=== PATIENT | female | born 1985 | race Caucasian/White ===

== ENCOUNTER 2018-04-02 23:11 | Inpatient (IN) ==
[2018-04-02] MEDS ORDERED: Naloxone Inj 0.4 MG/ML Vial IV.PUSH PRN (23:40)
[2018-04-02] MEDS ORDERED: Sodium Chlor 0.9% Inj 500 ML IV.SIG PRN (23:40)
[2018-04-02] MEDS ORDERED: Oxytocin 30 Units/500ml Premix 30 UNITS/500 ML BAG IV.SIG ONE (23:40)
[2018-04-02] MEDS ORDERED: fentaNYL Citrate Inj 100 MCG/2 ML Ampul IV.PUSH PRN ×2 (23:40)
[2018-04-02] MEDS ORDERED: Sod Chloride 0.9% Inj 1,000 ML IV.CONT PRN (23:40)
[2018-04-02] MEDS ORDERED: Citric Acid/Sodium Citrate Liq 30 ML UDC PO SCH (23:45)
--- NOTE | 2018-04-02 23:48 | P.HPOB ---
History of Present Illness Primary Care Physician: UNKNOWN Dr. Miller Chief Complaint: Water broke and sloan History of Present Illness: Patient is 32-year-old white female at 39 weeks presents with gross rupture of membranes clear fluid and sloan every 2 minutes painfully. heart rate tracing is reactive contractions noted, amnio sure positive Weeks Gestation:: 39 Para: 2 : 4 Total # of Miscarriage(s): 1 Review of Systems All other systems reviewed negative except as stated in HPI PMFSH - Social History I have reviewed the patient's Social History: Yes - Tobacco History Second Hand Smoke Exposure: No Tobacco Use In Past 30 Days: No Smoking Status: Never smoker - Alcohol History How Often Do You Have a Drink Containing Alcohol: Never - Substance Use History Substance History: No History of Abuse - Travel History History of Recent Travel: No Recent Travel in the [place] Within the Last 8 Weeks: No Recent Travel Out of the Country Within the Last 8 Weeks: No Medications and Allergies Active Medications: Active Medications Citric Acid/Sodium Citrate (Sodium Citrate/Citric Acid Liq) 30 ml 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 Stop: 04/06/18 23:44 Fentanyl Citrate (Fentanyl Inj) 50 mcg IV.PUSH Q1H PRN PRN Reason: Pain Scale 3 - 5 Fentanyl Citrate (Fentanyl Inj) 100 mcg IV.PUSH Q1H PRN PRN Reason: PAIN SCALE 6 TO 10 Lactated Ringer's (Lr 1000 Ml Inj) 1,000 mls @ 3,000 mls/hr IV.SIG UNSCH PRN PRN Reason: compromise or epidural Lactated Ringer's (Lr 1000 Ml Inj) 1,000 mls @ 125 mls/hr IV.CONT .Q8H MICK[facility] Sodium Chloride (Ns Inj) 500 mls @ 1,000 mls/hr IV.SIG UNSCH PRN PRN Reason: SEE LABEL COMMENTS Sodium Chloride (Ns Inj) 1,000 mls @ 100 mls/hr IV.CONT .Q10H PRN PRN Reason: SEE LABEL COMMENTS Oxytocin (Pitocin 30 Units/Ns 500 Ml Premix) 30 units in 500 mls @ 999 mls/hr IV.SIG BOLUS ONE Stop: 04/03/18 00:10 Lidocaine HCl (Xylocaine 1% Inj) 0.1 ml I-DERMAL PRN PRN PRN Reason: For IV start Stop: 04/05/18 23:39 Lidocaine HCl (Xylocaine 1% Inj) 10 ml INFILTRATN PRN PRN PRN Reason: For episiotomy repair Stop: 04/04/18 23:39 Mineral Oil (Muri-Lube Oil) 10 ml TOPICAL PRN PRN PRN Reason: PRN perineal massage Naloxone HCl (Narcan Inj) 0.1 mg IV.PUSH Q2M PRN PRN Reason: for opiate reversal Allergies Allergy/AdvReac Type Severity Reaction Status Date / Time codeine Allergy Severe Unverified 01/15/17 20:22 levofloxacin Allergy Severe Unverified 01/15/17 20:22 sulfamethoxazole Allergy Severe Unverified 01/15/17 20:22 trimethoprim Allergy Severe Unverified 01/15/17 20:22 Exam Vital signs: Vital Signs 04/02/18 23:37 Pulse Rate 73 Respiratory Rate 18 Blood Pressure 108/68 Narrative: GENERAL: Well-nourished, well-developed patient. SKIN: Warm and dry. HEAD: Normocephalic and atraumatic. EYES: No scleral icterus. No injection or drainage. ENT: No nasal drainage noted. Mucous membranes pink. Airway patent. NECK: Supple, trachea midline. No JVD. CARDIOVASCULAR: Regular rate and rhythm without murmurs, gallops, or rubs. RESPIRATORY: Breath sounds equal bilaterally. No accessory muscle use. BREASTS: Bilateral exam showed no masses , no retractions, no nipple discharge. ABDOMEN/GI: Abdomen soft, non-tender, bowel sounds present, no rebound, no guarding Gravid to [39-] weeks size Fundal Height: [37-] GENITOURINARY: External Genitalia: intact and normal in appearance BUS glands: [-] Cervix: [post-] Dilatation: [-1] Effacement: [-50] Station: [-3] Presentation: [-vtx] Membranes: [ ruptured]amnisure + Uterine Contractions: [q 2 min-] FHT's: Category: [1-] Baseline: [-133] Reactive: [R-] Variability: [mod-] Decels: [-0] EXTREMITIES: No cyanosis or edema. BACK: Nontender without obvious deformity. No CVA tenderness. NEUROLOGICAL: Awake and alert. Motor and sensory grossly within normal limits. Five out of 5 muscle strength in all muscle groups. Normal speech. Results - Labs Labs: amnisure + Group B Strep: Negative Caprini VTE Risk Assessment Caprini VTE Risk Assessment: No/Low Risk (score <= 1) Caprini Risk Assessment Model: Point Value = 1 Point Value = 2 Point Value = 3 Point Value = 5 Age 41-60 Minor surgery BMI > 25 kg/m2 Swollen legs Varicose veins or History of unexplained or recurrent spontaneous Oral contraceptives or hormone replacement Sepsis (< 1 month) Serious lung disease, including pneumonia (< 1 month) Abnormal pulmonary function Acute myocardial infarction Congestive heart failure (< 1 month) History of inflammatory bowel disease Medical patient at bed rest Age 61-74 Arthroscopic surgery Major open surgery (> 45 min) Laparoscopic surgery (> 45 min) Malignancy Confined to bed (> 72 hours) Immobilizing plaster cast Central venous access Age >= 75 History of VTE Family history of VTE Factor V Leiden Prothrombin [id number] Lupus anticoagulant Anticardiolipin antibodies Elevated serum homocysteine Heparin-induced thrombocytopenia Other congenital or acquired thrombophilia Stroke (< 1 month) Elective arthroplasty Hip, pelvis, or leg fracture Acute spinal cord injury (< 1 month) Prophylaxis Regimen: Total Risk Factor Score Risk Level Prophylaxis Regimen 0-1 Low Early ambulation 2 Moderate Order ONE of the following: *Sequential Compression Device (SCD) *Heparin 5000 units SQ BID 3-4 Higher Order ONE of the following medications: *Heparin 5000 units SQ TID *Enoxaparin/Lovenox 40 mg SQ daily (WT < 150 kg, CrCl > 30 mL/min) *Enoxaparin/Lovenox 30 mg SQ daily (WT < 150 kg, CrCl > 10-29 mL/min) *Enoxaparin/Lovenox 30 mg SQ BID (WT < 150 kg, CrCl > 30 mL/min) AND/OR *Sequential Compression Device (SCD) 5 or more Highest Order ONE of the following medications: *Heparin 5000 units SQ TID (Preferred with Epidurals) *Enoxaparin/Lovenox 40 mg SQ daily (WT < 150 kg, CrCl > 30 mL/min) *Enoxaparin/Lovenox 30 mg SQ daily (WT < 150 kg, CrCl > 10-29 mL/min) *Enoxaparin/Lovenox 30 mg SQ BID (WT < 150 kg, CrCl > 30 mL/min) AND *Sequential Compression Device (SCD) Assessment and Plan - Diagnosis (1) Leakage, amniotic fluid Code(s): O42.90 - Premature rupture of membranes, unspecified as to length of time between rupture and onset of labor, unspecified weeks of gestation Status : Acute (2) Uterine contractions Status: Acute (3) 39 weeks gestation of Code(s): Z3A.39 - 39 weeks gestation of Status: Acute - Plan This multiparous patient is 39 weeks with gross rupture membranes in early labor. Contractions are painful and every 2-3 minutes. heart rate tracing is reactive. However cervix is still the same as it is been for the last several weeks which is 1 cm/50/-3/vertex Plan for the patient be admitted to the hospital managed labor appropriately augment as needed and anticipate vaginal delivery
[2018-04-03 01:09] LABS: Bilirubin,Urine Negative (Negative); Clarity,Urine Slightly Cloudy (Clear); Glucose,Urine (UA) Negative (Negative); Leukocyte Esterase,Urine Large (Negative); Nitrite,Urine Negative (Negative); Urobilinogen,Urine 0.2 mg/dL (Less than 2)
[2018-04-03 01:28] LABS: Amphetamine Urine With Conf Neg (Neg); Benzodiazepine Urine With Conf Neg (Neg)
[2018-04-03 01:40] LABS: Baso % (Auto) 0.2 % (0.0-2.0); Eos # (Auto) 0.1 th/mm3 (0.0-0.4); Hemoglobin 10.4 gm/dL (11.6-15.3); Lymph # (Auto) 2.1 th/mm3 (1.0-4.8); Lymph % (Auto) 14.4 % (9.0-44.0); Mean Corpuscular HGB Conc 33.7 % (32.0-36.0); Mean Corpuscular Hemoglobin 29.9 pg (27.0-34.0); Mean Corpuscular Volume 88.6 fL (80.0-100.0); Mean Platelet Volume 10.1 fL (7.0-11.0); Mono % (Auto) 6.9 % (0.0-8.0); Neut # (Auto) 11.4 th/mm3 (1.8-7.7); Neut % (Auto) 77.5 % (16.0-70.0); Platelet Count 226 th/mm3 (150-450); Red Cell Distribution Width 13.7 % (11.6-17.2); White Blood Count 14.7 th/mm3 (4.0-11.0)
[2018-04-03 01:42] LABS: Specific Gravity,Urine 1.005 (1.002-1.035)
[2018-04-03 01:43] LABS: Squamous Epithelial Cell,Urine 0-5 /hpf (0-5); WBC,Urine 21-50 /hpf (0-5)
[2018-04-03 01:44] LABS: Bacteria,Urine Few /hpf
[2018-04-03] MEDS ORDERED: Oxytocin 30 Units/500ml Premix 30 UNITS/500 ML BAG IV.SIG PRN (02:39)
[2018-04-03] MEDS ORDERED: fentaNYL 2MCG-Bupiv 0.125% Epi 150 ML EPIDURAL ONE (10:05)
[2018-04-03] MEDS ORDERED: Lidocaaine 1.5%/Epinephrine 1:200,000 PF Inj 5 ML Amp ONE ×2 (10:19→10:22)
[2018-04-03] MEDS ORDERED: Lidocaine PF 1% Inj 5 ML Vial ONE (10:19)
[2018-04-03] MEDS ORDERED: Lidocaine 2%/Epinephrine 1:200,000 PF 10 ML SDV ONE (10:20)
[2018-04-03] MEDS ORDERED: fentaNYL Citrate Inj 100 MCG/2 ML Ampul EPIDURAL ONE (11:29)
[2018-04-03] MEDS ORDERED: fentaNYL 2MCG-Bupiv 0.125% Epi 150 ML EPIDURAL PRN (11:29)
[2018-04-03] MEDS ORDERED: Benzocaine 20% Top Spray 60 ML Can TOPICAL PRN (13:55)
[2018-04-03] MEDS ORDERED: Naloxone Inj 0.4 MG/ML Vial IV.PUSH PRN (13:55)
[2018-04-03] MEDS ORDERED: Witch Hazel 50%/Glyderin 12.5% 40 Pad Jar RECTAL PRN (13:55)
[2018-04-03] MEDS ORDERED: Oxytocin 30 Units/500ml Premix 30 UNITS/500 ML BAG IV.CONT PRN (13:55)
[2018-04-03] MEDS ORDERED: Bisacodyl 10 MG Supp RECTAL PRN (13:55)
--- NOTE | 2018-04-03 13:55 | P.OBDELI ---
Weeks Gestation: 39 Patient Started Active Labor: Yes Active Labor Start Date: 04/02/18 Active Labor Start Time: 19:30 Medical Induction of Labor: No Artificial Rupture of Membrane: No Anesthesia: Epidural Episiotomy: none Vaginal Delivery: Normal Presentation: Occiput anterior Nuchal Cord: x1 Delayed Cord Clamping (45 sec): No Placenta: Spontaneous delivery Estimated blood loss (mL): 200 Infant: Female ( 8/9)
[2018-04-03] MEDS ORDERED: Diphtheria/Tetanus/Pertussis Vaccine Inj 0.5 ML Syringe IM ONE (16:00)
[2018-04-03] MEDS ORDERED: Zolpidem Tartrate 5 MG Tablet PO PRN (21:00)
[2018-04-03] MEDS: Acetaminophen 325 MG Tablet PO PRN (21:26)
[2018-04-03] MEDS: Senna/Docusate Sodium 8.6/50 MG Tablet PO SCH (21:27)
[2018-04-04] MEDS: Senna/Docusate Sodium 8.6/50 MG Tablet PO SCH ×2 (08:48→21:47)
[2018-04-04] MEDS: Acetaminophen 325 MG Tablet PO PRN (08:48)
[2018-04-04] MEDS: Prenatal Vit/Ca/Iron/Folic Acid Tablet PO SCH (08:48)
--- NOTE | 2018-04-04 12:35 | P.PNOB ---
Subjective Post day: 1 Interval history: nursing well this is her third ok with discharge if baby discharged Objective Vital Signs/I&O: Vital Signs 04/03/18 12:40 04/03/18 13:16 04/03/18 13:40 Temperature Pulse Rate 86 95 H 91 H Respiratory Rate Blood Pressure 107/72 106/74 117/89 04/03/18 13:50 04/03/18 14:01 04/03/18 14:15 Temperature 98.1 F Pulse Rate 81 94 H 86 Respiratory Rate 18 Blood Pressure 114/64 126/52 L 105/60 04/03/18 14:31 04/03/18 15:00 04/03/18 15:15 Temperature Pulse Rate 84 71 Respiratory Rate Blood Pressure 119/56 L 106/68 108/66 04/03/18 16:30 04/03/18 20:00 04/04/18 08:00 Temperature 98.4 F 98.3 F 97.8 F Pulse Rate 80 81 73 Respiratory Rate 18 16 20 Blood Pressure 111/58 L 95/53 L 95/65 L Intake & Output 04/03/18 04/04/18 04/04/18 18:59 06:59 18:59 Intake Total 1000 / 1000 Balance 1000 / 1000 Weight 70 kg Intake: IV 1000 / 1000 LR 1000 mL Inj 1,000 ML @ 125 1000 / 1000 mls/hr IV.CONT .Q8H [facility] Rx#: [id number] Other: Weight On Admission 70 kg Result Diagrams: 04/03/18 00:57 Objective Remarks: GENERAL: Well-nourished, well-developed patient. CARDIOVASCULAR: Regular rate and rhythm without murmurs, gallops, or rubs. RESPIRATORY: Breath sounds equal bilaterally. No accessory muscle use. ABDOMEN/GI: Abdomen soft, non-tender. Fundus: Firm, non-tender at umbilicus. GENITOURINARY: Light to moderate bleeding. EXTREMITIES: No cyanosis or edema, non-tender, without signs of DVT. 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Q10H PRN PRN Reason: SEE LABEL COMMENTS Fentanyl/Bupivacaine/Sodium Chlor (Fentanyl 2 Mcg-Bupiv 0.125% Epi) 150 mls @ 12 mls/hr EPIDURAL PRN PRN PRN Reason: for Labor Pain Last Admin: 04/03/18 10:30 Dose: 12 mls/hr Oxytocin (Pitocin 30 Units/Ns 500 Ml Premix) 30 units in 500 mls @ 100 mls/hr IV.CONT UNSCH PRN PRN Reason: Heavy bleeding Ibuprofen (Motrin) 800 mg PO Q8H PRN PRN Reason: For Cramping Last Admin: 04/03/18 21:27 Dose: 800 mg Lactulose (Lactulose Liq) 30 ml PO DAILY PRN PRN Reason: SEVERE CONSITIPATION Lidocaine HCl (Xylocaine 1% Inj) 0.1 ml I-DERMAL PRN PRN PRN Reason: For IV start Stop: 04/05/18 23:39 Lidocaine HCl (Xylocaine 1% Inj) 10 ml INFILTRATN PRN PRN PRN Reason: For episiotomy repair Stop: 04/04/18 23:39 Mineral Oil (Muri-Lube Oil) 10 ml TOPICAL PRN PRN PRN Reason: PRN perineal massage Last Admin: 04/03/18 13:40 Dose: 10 ml Naloxone HCl (Narcan Inj) 0.1 mg IV.PUSH Q2M PRN PRN Reason: for opiate reversal Ondansetron HCl (Zofran Odt) 4 mg PO Q6H PRN PRN Reason: NAUSEA OR VOMITING Vit/Calcium/Iron/Folic Ac (Stuartnatal Plus 3) 1 tab PO DAILY [facility] Last Admin: 04/04/18 08:48 Dose: 1 tab Senna/Docusate Sodium (Marge-Colace) 1 tab PO BID [facility] Last Admin: 04/04/18 08:48 Dose: 1 tab Sennosides (Senokot) 17.2 mg PO Q12H PRN PRN Reason: Moderate Constipation Sodium Chloride (Ns Flush) 2 ml IV.FLUSH BID [facility] Last Admin: 04/04/18 08:02 Dose: Not Given Sodium Chloride (Ns Flush) 2 ml IV.FLUSH PRN PRN PRN Reason: FLUSH AFTER USING IV ACCESS Witch Krystle/Glycerin (Tucks Pads) 1 applicatio RECTAL QID PRN PRN Reason: HEMORRHOIDS Zolpidem Tartrate (Ambien) 5 mg PO HS PRN PRN Reason: SLEEP Assessment and Plan - Diagnosis (1) Vaginal delivery Code(s): O80 - Encounter for full-term uncomplicated delivery Status: Acute (2) 39 weeks gestation of Code(s): Z3A.39 - 39 weeks gestation of Status: Acute - Plan This multiparous patient is 39 weeks with gross rupture membranes in early labor. Contractions are painful and every 2-3 minutes. heart rate tracing is reactive. However cervix is still the same as it is been for the last several weeks which is 1 cm/50/-3/vertex Plan for the patient be admitted to the hospital managed labor appropriately augment as needed and anticipate vaginal delivery Doing well after anticipate discharge today or tomorrow
[2018-04-05] MEDS: Prenatal Vit/Ca/Iron/Folic Acid Tablet PO SCH (08:48)
[2018-04-05] MEDS: Senna/Docusate Sodium 8.6/50 MG Tablet PO SCH (08:49)
--- NOTE | 2018-04-05 10:11 | P.PNOB ---
Subjective Post day: 2 Interval history: doing well with nursing and no complaints ready for discharge Objective Vital Signs/I&O: Vital Signs 04/04/18 20:00 04/05/18 08:00 Temperature 98.1 F 97.9 F Pulse Rate 72 61 Respiratory Rate 18 20 Blood Pressure 104/64 103/56 L Result Diagrams: 04/03/18 00:57 Objective Remarks: GENERAL: Well-nourished, well-developed patient. CARDIOVASCULAR: Regular rate and rhythm without murmurs, gallops, or rubs. RESPIRATORY: Breath sounds equal bilaterally. No accessory muscle use. ABDOMEN/GI: Abdomen soft, non-tender. Fundus: Firm, non-tender at umbilicus. GENITOURINARY: Light to moderate bleeding. EXTREMITIES: No cyanosis or edema, non-tender, without signs of DVT. 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 [facility] Stop: 04/06/18 23:44 Fentanyl Citrate (Fentanyl Inj) 50 mcg IV.PUSH Q1H PRN PRN Reason: Pain Scale 3 - 5 Fentanyl Citrate (Fentanyl Inj) 100 mcg IV.PUSH Q1H PRN PRN Reason: PAIN SCALE 6 TO 10 Lactated Ringer's (Lr 1000 Ml Inj) 1,000 mls @ 3,000 mls/hr IV.SIG UNSCH PRN PRN Reason: compromise or epidural Lactated Ringer's (Lr 1000 Ml Inj) 1,000 mls @ 125 mls/hr IV.CONT .Q8H [facility] Last Admin: 04/05/18 07:35 Dose: Not Given Sodium Chloride (Ns Inj) 500 mls @ 1,000 mls/hr IV.SIG UNSCH PRN PRN Reason: SEE LABEL COMMENTS Sodium Chloride (Ns Inj) 1,000 mls @ 100 mls/hr IV.CONT .Q10H PRN PRN Reason: SEE LABEL COMMENTS Fentanyl/Bupivacaine/Sodium Chlor (Fentanyl 2 Mcg-Bupiv 0.125% Epi) 150 mls @ 12 mls/hr EPIDURAL PRN PRN PRN Reason: for Labor Pain Last Admin: 04/03/18 10:30 Dose: 12 mls/hr Oxytocin (Pitocin 30 Units/Ns 500 Ml Premix) 30 units in 500 mls @ 100 mls/hr IV.CONT UNSCH PRN PRN Reason: Heavy bleeding Ibuprofen (Motrin) 800 mg PO Q8H PRN PRN Reason: For Cramping Last Admin: 04/05/18 08:49 Dose: 800 mg Lactulose (Lactulose Liq) 30 ml PO DAILY PRN PRN Reason: SEVERE CONSITIPATION Lidocaine HCl (Xylocaine 1% Inj) 0.1 ml I-DERMAL PRN PRN PRN Reason: For IV start Stop: 04/05/18 23:39 Mineral Oil (Muri-Lube Oil) 10 ml TOPICAL PRN PRN PRN Reason: PRN perineal massage Last Admin: 04/03/18 13:40 Dose: 10 ml Naloxone HCl (Narcan Inj) 0.1 mg IV.PUSH Q2M PRN PRN Reason: for opiate reversal Ondansetron HCl (Zofran Odt) 4 mg PO Q6H PRN PRN Reason: NAUSEA OR VOMITING Vit/Calcium/Iron/Folic Ac (Stuartnatal Plus 3) 1 tab PO DAILY [facility] Last Admin: 04/05/18 08:48 Dose: 1 tab Senna/Docusate Sodium (Marge-Colace) 1 tab PO BID [facility] Last Admin: 04/05/18 08:49 Dose: 1 tab Sennosides (Senokot) 17.2 mg PO Q12H PRN PRN Reason: Moderate Constipation Sodium Chloride (Ns Flush) 2 ml IV.FLUSH BID [facility] Last Admin: 04/05/18 08:47 Dose: Not Given Sodium Chloride (Ns Flush) 2 ml IV.FLUSH PRN PRN PRN Reason: FLUSH AFTER USING IV ACCESS Witch Krystle/Glycerin (Tucks Pads) 1 applicatio RECTAL QID PRN PRN Reason: HEMORRHOIDS Zolpidem Tartrate (Ambien) 5 mg PO HS PRN PRN Reason: SLEEP Assessment and Plan - Diagnosis (1) Vaginal delivery Code(s): O80 - Encounter for full-term uncomplicated delivery Status: Acute (2) 39 weeks gestation of Code(s): Z3A.39 - 39 weeks gestation of Status: Acute - Plan This multiparous patient is 39 weeks with gross rupture membranes in early labor. Contractions are painful and every 2-3 minutes. heart rate tracing is reactive. However cervix is still the same as it is been for the last several weeks which is 1 cm/50/-3/vertex Plan for the patient be admitted to the hospital managed labor appropriately augment as needed and anticipate vaginal delivery Doing well after anticipate discharge today or tomorrow PPD 2 ready for discharge counseled on issues to call about RTO 2 weeks or 6 weeks
== END 2018-04-05 12:59 | disposition home or self-care (01) ==
LOC: HOBED 23:11 → H2E 23:46 → H1EA 04-03 15:53
PROVIDERS: ADMIT Obstetrics & Gynecology; ATTEND Obstetrics & Gynecology